=== PATIENT | female | born 1975 | race Caucasian/White ===

== ENCOUNTER 2017-08-22 08:39 | Day surgery (SDC) | payer OTHER ==
[2017-08-22] MEDS ORDERED: NS 500 ML IV ONE (08:45)
[2017-08-22] MEDS ORDERED: fentaNYL 100 MCG/2 ML INJ IVP ONE (08:45)
[2017-08-22] MEDS ORDERED: BENZOCAINE UNIT DOSE SPRAY HURRICAINE MM ONE (08:45)
[2017-08-22] MEDS ORDERED: MIDAZOLAM 2 MG/2 ML VIAL IVP ONE (08:45)
--- NOTE | 2017-08-22 10:03 | PDPROPOC ---
Sedation Plan of Care Sedation Plan of Care: vital signs stable, mental status noted, patient educated of risks, benefits, alternatives, patient can tolerate sedation ASA Classification: ASA 1 Planned drugs: fentanyl, midazolam Mallampati Score: Class 1 Mallampati Reference Image: Patient passed 3-3-2 rule?: Yes
--- NOTE | 2017-08-22 10:04 | PDGENHP ---
History & Physical Chief Complaint: Palpitaions, abnormal ECG. History of Present Illness: Abnormal ECG, prior TTE suggesting PFO/ASD. Pertinent Past, Social, Family History: None. Relevant Physical Exam: RRR without MGR. Lungs clear
[2017-08-22] MEDS ORDERED: fentaNYL 100 MCG/2 ML INJ ONE (10:14)
--- NOTE | 2017-08-22 15:30 | ECHO ---
[email or web address] [address] [address] Main: [phone] Fax: Transesophageal Echocardiography Name: CHRISTOPHER HTOMAS MR#: [id number] Study Date: 08/22/2017 Study Time: 09:58 AM Date of : 1975 Age: 41 year(s) Height: ( ) Weight: ( ) BSA: Gender: Female Examination: Indication: Eval for PFO Image Quality: Contrast: Requested by: Navi Newton Heart Rate: Rhythm: BP: / Procedure Staff [employer]ber Management Technician: Willem Giron Reading Physician: Navi Newton Requesting Provider: JACOBY Exam Details Conclusions: This is a transesophageal echocardiogram performed the patient with an abnormal normal ECG and a transthoracic echocardiogram suggesting the possibility of an atrial septal defect . Left ventricle is normal in size with normal systolic function and no evidence of ischemic wall motion abnormalities. All chamber dimensions are normal. The valvular anatomy is normal. There is no significant valvular stenosis or insufficiency. The interatrial septum is intact on color flow Doppler interrogation. An agitated saline contrast study was performed with no indication of an atrial septal defect or PFO. Measurements: Chambers Valvular Assessment AV/MV Valvular Assessment TV/PV Normal Normal Normal Name Value Range Name Value Range Name Value Range Additional Measurements: Findings: Left Ventricle: Normal global systolic LV function. Left Atrium: An agitated saline study was performed and was negative for intracardiac shunting. Left Atrial Appendage: Good color flow doppler in the left atrial appendage. Normal PW-Doppler flow pattern. Mitral Valve: The mitral valve is normal in appearance and function. Patient: CHRISTOPHER THOMAS Study Date: 08/22/2017 Page 1 of 2 09:58 AM Aortic Valve: The aortic valve is normal in appearance and function. The aortic valve is tri-leaflet. Tricuspid Valve: The tricuspid valve is normal in appearance and function. Pulmonic Valve: The pulmonic valve is normal in appearance and function. Aorta: The aorta is normal. Pericardium: No pericardial effusion. l1n (No Signature Object) Patient: CHRISTOPHER THOMAS Study Date: 08/22/2017 Page 2 of 2 09:58 AM [id number]
== END 2017-08-22 11:33 | disposition home or self-care (01) ==
LOC: FCATH 08:39
PROVIDERS: ATTEND Internal Medicine Cardiovascular Disease
PROC: B245ZZ4 Ultrasonography of Left Heart, Transesophageal (ICD-10-PCS; principal; 2017-08-22)
DX: R94.31 Abnormal electrocardiogram [ECG] [EKG] (principal); R00.2 Palpitations
CPT/HCPCS: J2250; J3010